=== PATIENT | female | born 1960 | race Caucasian/White ===

== ENCOUNTER 2016-09-18 14:09 | Emergency (ER) | payer SELFPAY ==
[~2016-09-18] VITALS: Ht 165.1 cm; Wt 92.0 kg
[~2016-09-18 14:09] MED LIST: BUSP15TA PO; FLUO40CA PO; GABA400C5 PO; GLUC1CAP16; LISI-515 PO; METF500T PO; RED1CAP4; TRAM50TA PO
[2016-09-18 14:10] VITALS: BP 159/82; PULSE 89; RESP 18; TEMP 98.1; O2SAT 97
[2016-09-18 15:18] LABS: BACTERIA, URINE RARE /hpf; BLOOD, URINE NEG (NEG); COMMENT (UR) CULT NOT INDICATED; CULTURE IF INDICATED CULT NOT INDICATED; GLUCOSE,URINE NEG (NEG); KETONE, URINE NEG (NEG); NITRITE,URINE NEG (NEG); PH, URINE 5.5 (5.0-8.5); SQUAMOUS EPITHELIAL CELL URINE 1 /hpf (0-5); URINE COLOR COLORLESS (YELLW/STRAW)
== END 2016-09-18 15:52 | disposition left against medical advice (07) ==
LOC: NED 14:09
DX: M54.9 Dorsalgia, unspecified (principal)
CPT/HCPCS: 81001; 99281